=== PATIENT | male | born 2000 | race Hispanic/Latino ===

== ENCOUNTER 2021-12-09 07:12 | Emergency (ER) | payer SELFPAY ==
[2021-12-09 07:20] VITALS: BP 136/92; PULSE 94; RESP 16; TEMP 36.8; O2SAT 96
--- NOTE | 2021-12-09 07:44 | ED.EYEPROB ---
HPI - Eye Problem General Chief complaint: Eye Problems Stated complaint: foreign object in eye Time Seen by Provider: 12/09/21 07:14 Source: patient History of Present Illness HPI Narrative: 21-year-old male presenting to the emergency department for evaluation of right eye pain. Patient states yesterday he was grinding metal and was not wearing eye protection. Patient states he does feel he has a foreign body in his right eye. Denies any change in vision but does report pain of the right eye. Patient did attempt to irrigate the eye at home with no improvement in his symptoms. Related Data Allergies Allergy/AdvReac Type Severity Reaction Status Date / Time bee venom protein (honey bee) Allergy Unknown Verified 12/09/21 07:51 potato Allergy Unknown Verified 12/09/21 07:51 Review of Systems Review of Systems: CONSTITUTIONAL: Denies fever, chills, or sweats. EYES: Right eye pain. ENT: Denies rhinorrhea, congestion, sore throat, or otalgia. CARDIOVASCULAR: Denies chest pain, palpitations, or edema. RESPIRATORY: Denies cough or dyspnea. GASTROINTESTINAL: Denies abdominal pain, nausea, vomiting, or diarrhea. GENITOURINARY: Denies dysuria or hematuria. SKIN: Denies rash or itching. MUSCULOSKELETAL: Denies back pain, joint pain, or myalgia. NEUROLOGIC: Denies headache, numbness, or weakness. Exam Narrative: APPEARANCE: Well appearing, no pain, no distress, well-nourished. HEAD: normocephalic, atraumatic. EYES: PERRLA/EOMI, conjunctivae clear. Fluorescein uptake anteriorly. Unable to determine if there was a foreign body NOSE: Normal no drainage THROAT: Pharynx clear, no exudate. NECK: Supple. No adenopathy, no masses. RESPIRATORY: Airway patent, respirations nonlabored. Clear to auscultation bilaterally, no rales, rhonchi, wheezing. CARDIOVASCULAR: Regular rate and rhythm without murmurs rubs or gallops. ABDOMINAL: Soft, nontender, nondistended, normal bowel sounds MUSCULOSKELETAL: Moves all extremities. Strength/ROM intact, No edema, No calf tenderness. Course Course Emergency Course: No metallic foreign body visualized on exam. Patient was encouraged to have close follow-up with ophthalmology for a more thorough exam. Patient did have fluorescein uptake and did have a corneal abrasion. Patient was started on erythromycin in the emergency department. Patient was strongly encouraged to continue to follow-up with ophthalmology. All questions concerns were addressed. Patient was in no distress at time of discharge from the emerge department. Vital Signs Vital signs: Vital Signs Temperature 98.2 F 12/09/21 07:20 Pulse Rate 94 12/09/21 07:20 Respiratory Rate 16 12/09/21 07:20 Blood Pressure 136/92 H 12/09/21 07:20 Pulse Oximetry 96 12/09/21 07:20 Temperature 98.2 F 12/09/21 07:20 Pulse Rate 94 12/09/21 07:20 Respiratory Rate 16 12/09/21 07:20 Blood Pressure 136/92 H 12/09/21 07:20 Pulse Oximetry 96 12/09/21 07:20 MDM - Eye Problem Differential Diagnosis Differential diagnosis: Likely corneal abrasion Discharge Plan Discharge Clinical Impression: Corneal abrasion Qualifiers: Encounter type: initial encounter Laterality: right Qualified Code(s): S05.01XA - Injury of conjunctiva and corneal abrasion without foreign body, right eye, initial encounter Eye foreign body Qualifiers: Encounter type: initial encounter Laterality: right Qualified Code(s): T15.91XA - Foreign body on external eye, part unspecified, right eye, initial encounter Patient Disposition: Home, Self-Care Condition: Stable Instructions: Antibiotic Form, Corneal Abrasion (ED), Eye Foreign Body (ED) Additional Instructions: Follow up with [facility]. [phone]. Call for urgent follow up. Antibiotic ointment as directed. If you have any worsening symptoms or if you have any questions or concerns then please call or return to the emergency department. Prescriptions: New erythromycin 5 mg/gram (0.5
[2021-12-09] MEDS: ERYTHROMYCIN OPHTH OINTMENT 1 GM TUBE 1 APPLIC RIGHT EYE (08:19)
== END 2021-12-09 08:22 | disposition home or self-care (01) ==
PROVIDERS: Emergency Provider Emergency Medicine
DX: S05.01XA Injury of conjunctiva and corneal abrasion without foreign body, right eye, initial encounter (principal); T15.91XA Foreign body on external eye, part unspecified, right eye, initial encounter; X58.XXXA Exposure to other specified factors, initial encounter
CPT/HCPCS: 99283; A9270